=== PATIENT | male | born 1980 ===

== ENCOUNTER 2017-08-22 08:54 | Day surgery (SDC) | payer MEDICARE, OTHER ==
[~2017-08-22] VITALS: Ht 177.8 cm; Wt 61.2 kg
[~2017-08-22 08:54] MED LIST: Hair, Skin & N1 EACH; QUET300 PO; ZOLP5
== END 2017-08-22 13:15 | disposition home or self-care (01) ==
LOC: ORSCSDS 08:54
PROVIDERS: Dentist Pediatric Dentistry
PROC: 0CRWXJ1 Replacement of Upper Tooth, Multiple, with Synthetic Substitute, External Approach (ICD-10-PCS; principal; 2017-08-22 10:30)
PROC: 0CRXXJ1 Replacement of Lower Tooth, Multiple, with Synthetic Substitute, External Approach (ICD-10-PCS; principal; 2017-08-22 10:30)
DX: K02.9 Dental caries, unspecified (principal); F84.0 Autistic disorder; F73 Profound intellectual disabilities; F45.8 Other somatoform disorders; G40.909 Epilepsy, unspecified, not intractable, without status epilepticus; Z79.899 Other long term (current) drug therapy
CPT/HCPCS: J1100; J1885; J2250; J2405; J2710; J3010; J7120